=== PATIENT | male | born 1940 | race Caucasian/White ===

== ENCOUNTER → 2019-05-08 | Outpatient (CLI) | payer OTHER, BC ==
[~2019-05-08] VITALS: Ht 180.3 cm; Wt 97.5 kg
[~2019-05-08] MED LIST: BENTYL10 MG/1 ML IM; CARDURA8 MG PO; FLONASE 0.05%50 MCG NASAL; LIPITOR20 MG PO; PAXIL CR25 MG PO; REQUIP 1 MG TABL1 M1 PO; TOPROL XL50 MG PO; TRAMADOL 50 MG50 MG PO; XANAX 0.25 MG0.25 MG PO; ZANAFLEX2 M1 PO; ZYRTEC10 M5 PO
--- NOTE | ~2019-05-08 | H ---
[facility] [address] [place] [address] HISTORY AND PHYSICAL Name: RICHARD ELIZABETH Room #: [facility]#: [id number] Admission: 05/08/19 Attend Phys: Armen De Guzman MD Discharge: Date of : 44 Report #: [id number] THIS REPORT FOR: //name// CC: David De Guzman DATE OF SERVICE: 05/08/2019 PREOPERATIVE DIAGNOSIS: Supraventricular tachycardia. HISTORY OF PRESENT ILLNESS: The patient is a 78-year-old male with a history of supraventricular tachycardia, recently had a stress test where he went into SVT. He is here for EP study, possible ablation of either SVT or atrial fibrillation. He has had a questionable history of AFib in the past. ALLERGIES: Include ATIVAN, DILAUDID, MORPHINE. PAST MEDICAL HISTORY: SVT. SOCIAL HISTORY: Does not smoke. FAMILY HISTORY: Noncontributory. MEDICATIONS: Have been reviewed. REVIEW OF SYSTEMS: A 12-point review of systems was performed and was negative with no complaints of chest pain, shortness of breath, PND, orthopnea, presyncope or syncope. PHYSICAL EXAMINATION: VITAL SIGNS: Stable. GENERAL: No acute distress. HEENT: Oropharynx clear. NECK: Supple, no thyromegaly. HEART: Regular rate and rhythm. LUNGS: Clear to auscultation bilaterally. ABDOMEN: Soft, nontender, nondistended. EXTREMITIES: No clubbing, cyanosis, edema. NEUROLOGIC: Cranial nerves 2-12 intact. ASSESSMENT: Supraventricular tachycardia versus atrial fibrillation. [facility] [address] [place] [address] HISTORY AND PHYSICAL Name: RICHARD ELIZABETH Room #: [facility]#: [id number] Admission: 05/08/19 Attend Phys: Armen De Guzman MD Discharge: Date of : 44 Report #: [id number] PLAN: We will proceed with diagnostic EP study and either ablation of SVT versus atrial fibrillation. Risks and benefits have been previously documented. By: [id number] Armen De Guzman MD /nt
[2019-05-08 07:07] VITALS: BP 149/78
[2019-05-08 07:23] LABS: ABSOLUTE NEUTROPHILS 2.3 thou/uL (1.4-8.2); BASOPHILS 0.8 % (0.0-2.0); HEMATOCRIT 40.8 % (42.0-52.0); HEMOGLOBIN 13.5 gm/dL (14.0-18.0); MCH 29.4 pg (26.0-34.0); MCHC 33.1 g/dL (28.0-37.0); MCV 88.8 fL (80.0-100.0); MONOCYTES 11.3 % (1.0-8.0); PLATELET COUNT 194 thou/uL (150-400); POLYS 53.9 % (36.0-66.0); RBC 4.59 mil/uL (4.50-6.00); RDW 13.9 % (10.5-14.5); WBC 4.2 thou/uL (4.0-11.0)
[2019-05-08 07:32] LABS: CALCIUM 8.9 mg/dL (8.5-10.1); CREATININE 1.2 mg/dL (0.7-1.3)
[2019-05-08 07:40] LABS: PROTIME 10.2 Seconds (9.3-11.4)
--- NOTE | 2019-05-25 12:28 | P ---
[facility] [place] [address] [place] [address] PROCEDURE REPORT Name: RICHARD ELIZABETH Room #: [facility]#: [id number] Admission: 05/08/19 Attend Phys: Armen De Guzman MD Discharge: Date of : 44 Report #: [id number] THIS REPORT FOR: //name// CC: David De Guzman SUPRAVENTRICULAR TACHYCARDIA ABLATION PREOPERATIVE DIAGNOSIS: Supraventricular tachycardia. 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 PROCEDURES PERFORMED: 1. SVT ablation, CPT code 12793. 2. Left atrial pacing and recording, CPT code 88075. 3. Program with stimulation pacing after IV drug infusion, CPT code 12250. 4. 3D mapping, CPT code 25809. HISTORY OF PRESENT ILLNESS: The patient is a 78-year-old with SVT, here for ablation. ANESTHESIA: The patient underwent MAC anesthesia with no anesthesia-related complications. DESCRIPTION OF PROCEDURE: The patient underwent informed consent. We discussed the details of the procedure including the risks which include but not limited to bleeding, vascular damage, cardiac perforation, stroke, OH as well as damage to the cahto conduction system requiring permanent pacemaker. He understood these risks and is willing to proceed. The patient was brought to the EP laboratory in a fasting and sedated state, prepped and draped in a sterile fashion. At baseline, the patient was in sinus rhythm with sinus cycle length of 710 milliseconds, VT interval 195 milliseconds, QRS duration 85 milliseconds, QT interval 380 milliseconds, AH interval 105 milliseconds, HV interval 41 milliseconds. I obtained access to the bilateral femoral veins, placing an 8 and 6-Nauruan short sheath in the right femoral vein, and a 7 and 6-Nauruan short sheath in the left femoral vein. Next, under fluoroscopy, 3 quadripolar catheters were placed at the HRA, His and RV position, and decapolar catheter was placed easily in the coronary sinus. At baseline, the patient was in sinus rhythm with sinus cycle length of 710 milliseconds, VT interval 195 milliseconds, QRS duration 85 milliseconds, QT interval 380 milliseconds, AH interval 105 milliseconds, HV interval 41 milliseconds. Next, atrial burst pacing was performed and quickly the patient went into SVT with a cycle length of 570 milliseconds, a septal VA time of 35 milliseconds and the tachycardia terminated on its own. It terminated within A. I was able to induce this SVT 2 or 3 times, but failed entrainment. Next, ventricular pacing was performed and VA block was noted at 420 milliseconds. [facility] [address] [place] [address] PROCEDURE REPORT Name: RICHARD ELIZABETH [facility] [id number] Admission: 05/08/19 Attend Phys: Armen De Guzman MD Discharge: Date of : 44 Report #: [id number] Single ventricular extrastimuli were delivered and ventricular ERP was noted at 240 milliseconds with a [address] cycle length, with conduction that was both midline and decremental. Next, isoproterenol infusion was started at 2 mcg per minute and this time with pacing, the patient went into another SVT. SVT #2 had tachycardia cycle length of 310 milliseconds with septal VA time of 135 milliseconds. This tachycardia would terminate on its own and appeared to likely be an atypical AV colette reentrant tachycardia. Again, I could not entrain this and I induced it 3 times. I then decreased the isoproterenol to 1 mcg per minute, and again I was able to induce both an atypical AVNRT and a typical AV colette reentrant tachycardia. However, I was not able to entrain either of these as they would terminate on their own. 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 3D MAPPING AND ABLATION: I placed a SR0 sheath and a 4-mm BiosVIOSO Galo ablation catheter into the right atrium. I performed a total of 8 ablation lesions. The first 7 lesions had essentially continuous slow junctionals throughout the schulz. On the 8th burn, there was no further evidence of junctionals. During some of the initial schulz, the patient would actually go into AVNRT during the ablation and there was always a good 1:1 conduction noted. We did create a detailed 3D geometry of the right atrium with specific emphasis of the His bundle region and the slow pathway region. As such, we had great junctionals on every burn, and therefore we decided to perform post-ablation testing. We placed the patient immediately back on isoproterenol and performed aggressive atrial burst pacing. AV block was noted at 400 milliseconds. The patient did not appear to have slow pathway conduction anymore. AV colette ERP was noted at 330 milliseconds with a [address] cycle length, and there was occasional rare single AV colette echoes noted. We performed aggressive atrial and ventricular pacing maneuvers, and whereas previously the patient would easily go into either typical or atypical AV colette reentrant tachycardia, he was no longer inducible. Post-ablation, he was in sinus rhythm with sinus cycle length of 615 milliseconds, VT interval 160 milliseconds, QRS duration 80 milliseconds, QT interval 360 milliseconds, AH interval 99 milliseconds, HV interval of 38 milliseconds. As such, catheters and sheaths were pulled. Hemostasis was obtained, and the patient awoke neurologically and hemodynamically intact. CONCLUSIONS: 1. 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 2. Normal SA colette function. 3. Normal AV colette function. [facility] [address] [place] [address] PROCEDURE REPORT Name: RICHARD ELIZABETH Room #: [facility] [place]#: [id number] Admission: 05/08/19 Attend Phys: Armen De Guzman MD Discharge: Date of : 44 Report #: [id number] 4. Normal His-Purkinje function. 5. No other inducible arrhythmias on or off isoproterenol. <ELECTRONICALLY SIGNED> By: Armen De Guzman MD 05/25/19 1228 [id number] Armen De Guzman MD /nt
== END | disposition home or self-care (01) ==
LOC: CATH 06:36
PROVIDERS: Internal Medicine Cardiovascular Disease
DX: I47.1 Supraventricular tachycardia (principal); R94.39 Abnormal result of other cardiovascular function study; I10 Essential (primary) hypertension; E78.5 Hyperlipidemia, unspecified; Z98.0 Intestinal bypass and anastomosis status; E78.00 Pure hypercholesterolemia, unspecified; Z90.49 Acquired absence of other specified parts of digestive tract; Z98.890 Other specified postprocedural states; Z79.899 Other long term (current) drug therapy
CPT/HCPCS: 62110; 62900; 70005

== ENCOUNTER → 2019-07-18 | Outpatient (CLI) | payer OTHER | LOC: CAT 10:54 | DX: Z13.6 Encounter for screening for cardiovascular disorders (principal); E78.00 Pure hypercholesterolemia, unspecified; I25.10 Atherosclerotic heart disease of native coronary artery without angina pectoris ==

== ENCOUNTER → 2019-08-02 | Outpatient (CLI) | payer OTHER, BC | LOC: SJCVC 09:55 | DX: I47.1 Supraventricular tachycardia (principal); I25.10 Atherosclerotic heart disease of native coronary artery without angina pectoris; I10 Essential (primary) hypertension; I48.0 Paroxysmal atrial fibrillation; I71.2 Thoracic aortic aneurysm, without rupture; E78.00 Pure hypercholesterolemia, unspecified; Z79.82 Long term (current) use of aspirin; Z79.899 Other long term (current) drug therapy ==

== ENCOUNTER → 2020-02-01 | Outpatient (CLI) | payer OTHER, BC | LOC: SJCVCIMAG 01-31 10:51 | PROVIDERS: ATTEND Internal Medicine Cardiovascular Disease | DX: I25.10 Atherosclerotic heart disease of native coronary artery without angina pectoris (principal); I11.9 Hypertensive heart disease without heart failure; R00.1 Bradycardia, unspecified; I47.1 Supraventricular tachycardia; E78.00 Pure hypercholesterolemia, unspecified; Z79.899 Other long term (current) drug therapy ==

== ENCOUNTER → 2020-10-30 | Outpatient (CLI) | payer OTHER, BC | LOC: SJCVC 07:33 → SJCVCIMAG 07:33 | PROVIDERS: ATTEND Internal Medicine Cardiovascular Disease | DX: Z01.818 Encounter for other preprocedural examination (principal); R00.1 Bradycardia, unspecified; E78.5 Hyperlipidemia, unspecified; I73.9 Peripheral vascular disease, unspecified; I25.10 Atherosclerotic heart disease of native coronary artery without angina pectoris; I47.1 Supraventricular tachycardia; I10 Essential (primary) hypertension; I71.2 Thoracic aortic aneurysm, without rupture; R93.1 Abnormal findings on diagnostic imaging of heart and coronary circulation; G47.33 Obstructive sleep apnea (adult) (pediatric); I48.0 Paroxysmal atrial fibrillation; Z79.899 Other long term (current) drug therapy; Z79.82 Long term (current) use of aspirin; Z88.5 Allergy status to narcotic agent; Z88.8 Allergy status to other drugs, medicaments and biological substances; Z88.1 Allergy status to other antibiotic agents ==

== ENCOUNTER → 2021-08-01 | Outpatient (CLI) | payer OTHER, BC | LOC: SJCVCIMAG 07-30 09:30 | PROVIDERS: ATTEND Internal Medicine Cardiovascular Disease | DX: I05.9 Rheumatic mitral valve disease, unspecified (principal); I25.10 Atherosclerotic heart disease of native coronary artery without angina pectoris; R93.1 Abnormal findings on diagnostic imaging of heart and coronary circulation; I71.2 Thoracic aortic aneurysm, without rupture; E78.00 Pure hypercholesterolemia, unspecified; I47.1 Supraventricular tachycardia; G47.33 Obstructive sleep apnea (adult) (pediatric); I10 Essential (primary) hypertension; Z79.82 Long term (current) use of aspirin; Z79.899 Other long term (current) drug therapy; Z88.5 Allergy status to narcotic agent; Z88.8 Allergy status to other drugs, medicaments and biological substances; Z82.49 Family history of ischemic heart disease and other diseases of the circulatory system ==